=== PATIENT | female | born 1970 | race Caucasian/White ===

== ENCOUNTER 2019-03-23 18:54 | Emergency (ER) | payer OTHER ==
[2019-03-23 19:18] VITALS: TEMP 99.4
--- NOTE | 2019-03-23 20:06 | XR ---
EXAMINATION TYPE: XR humerus RT DATE OF EXAM: 03/23/2019 COMPARISON: NONE HISTORY: Pain TECHNIQUE: 2 views FINDINGS: Shoulder joint and elbow joint appear intact. I see no fracture nor dislocation. IMPRESSION: Negative right humerus exam.
--- NOTE | 2019-03-23 20:06 | XR ---
EXAMINATION TYPE: XR elbow complete RT DATE OF EXAM: 03/23/2019 COMPARISON: NONE HISTORY: Pain TECHNIQUE: 3 views FINDINGS: I see no fracture nor dislocation. Joint spaces are normal. There is no sign of elbow joint effusion. IMPRESSION: Negative right elbow exam.
--- NOTE | 2019-03-23 21:30 | ED ---
Fall HPI - General Chief Complaint: Fall Stated Complaint: Fall Time Seen by Provider: 03/23/19 20:25 Source: patient Mode of arrival: ambulatory - History of Present Illness Initial Comments: Is a pleasant 48-year-old female who presents the emergency department today for evaluation of right elbow pain. 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 She reports that she was stepping up onto a chair and then onto a table to reached up on a high shelf. She was wearing a long back C dressed wh ile doing this and at one point stepped forward caught her foot in her dress and fell backwards striking her right elbow on a box or the ground. Patient reports she immediately felt pain in her elbow which she had hit her funny bone and noticed a big bruise. Pain did not improve within 30 minutes which prompted her to come to the ER for evaluation of possible fracture. She is no history of injury or surgery to this elbow. She denies any other injury. - Related Data Home Medications Medication Instructions Recorded Confirmed Ascorbic Acid [Vitamin C] 1,000 mg PO DAILY 03/23/19 03/23/19 Cyanocobalamin (Vitamin B-12) 1,000 mcg PO DAILY 03/23/19 03/23/19 [Vitamin B-12] Multivitamins, Thera [Multivitamin 1 tab PO DAILY 03/23/19 03/23/19 (formulary)] Previous Rx's Medication Instructions Recorded Ibuprofen [Motrin] 600 mg PO Q8HR PRN #30 tab 03/23/19 Ibuprofen [Motrin] 600 mg PO Q8HR PRN #30 tab 03/23/19 tiZANidine HCL 4 mg PO TID #30 capsule 03/23/19 tiZANidine HCL 4 mg PO TID #30 capsule 03/23/19 Allergies Allergy/AdvReac Type Severity Reaction Status Date / Time Iodinated Contrast- Oral and Allergy Anaphylaxis Verified 03/23/19 21:14 IV Dye [Iodinated Contrast Media - IV Dye] latex Allergy Rash/Hives Verified 03/23/19 21:14 sulfamethoxazole Allergy Rash/Hives Verified 03/23/19 21:14 [From Bactrim] trimethoprim [From Bactrim] Allergy Rash/Hives Verified 03/23/19 21:14 meperidine HCl [From Demerol] AdvReac Anxiety Verified 03/23/19 21:14 Review of Systems ROS Statement: Those systems with pertinent positive or pertinent negative responses have been documented in the HPI. ROS Other: All systems not noted in ROS Statement are negative. Past Medical History Past Medical History: Asthma History of Any Multi-Drug Resistant Organisms: None Reported Additional Past Surgical History / Comment(s): kidney stones and obstruction Past Anesthesia/Blood Transfusion Reactions: No Reported Reaction Past Psychological History: No Psychological Hx Reported Smoking Status: Current every day smoker Past Alcohol Use History: Occasional Past Drug Use History: None Reported - Past Family History Father Family Medical History: Congestive Heart Failure (CHF), COPD, Diabetes Mellitus Mother Family Medical History: Hypertension Additional Family Medical History / Comment(s): osteoporosis Sister(s) Family Medical History: Asthma, Cancer, COPD, Diabetes Mellitus Additional Family Medical History / Comment(s): ovarian cancer Brother(s) Family Medical History: Asthma Additional Family Medical History / Comment(s): lymphoma. General Exam - General Exam Comments Initial Comments: Physical Exam GENERAL: Patient is well-developed and well-nourished. Patient is nontoxic and well- hydrated and is in no distress. HENT: Normocephalic, Atraumatic. EYES: PERRL, EOMI PULMONARY: Unlabored respirations. CARDIOVASCULAR: RRR ABDOMEN: Soft and nontender with normal bowel sounds. SKIN: Contusion to right posterior arm proximal to elbow : Deferred NEUROLOGIC: Patient is alert and oriented x3. MUSCULOSKELETAL: Right arm is held in flexed position for comofort however able to extend the elbow and pronate and supinate the arm PSYCHIATRIC: Normal psychiatric evaluation Limitations: no limitations Course Vital Signs 03/23/19 03/23/19 19:15 22:05 Temperature 99.4 F Pulse Rate 97 77 Respiratory 18 19 Rate Blood Pressure 128/73 112/56 O2 Sat by Pulse 99 97 Oximetry Medical Decision Making - Medical Decision Making Patient was seen and evaluated history is obtained from the patient, x-rays were obtained which revealed no obvious fracture. I did discuss with the patient the possibility of occult fracture, we'll place the patient in a sling for comfort, recommend Tylenol, Motrin and muscle relaxers for pain over the next 24-48 hours after the fall. Advised the patient to follow up with orthopedics for repeat evaluation next week. All questions pertaining care were answered return p arameters were discussed patient was discharged home in stable condition. Disposition Clinical Impression: Fall, Elbow pain Disposition: HOME SELF-CARE Condition: Stable Instructions (If sedation given, give patient instructions): Fall Prevention for Older Adults (ED) Prescriptions: Ibuprofen [Motrin] 600 mg PO Q8HR PRN #30 tab PRN Reason: Pain Ibuprofen [Motrin] 600 mg PO Q8HR PRN #30 tab PRN Reason: Pain tiZANidine HCL 4 mg PO TID #30 capsule tiZANidine HCL 4 mg PO TID #30 capsule Is patient prescribed a controlled substance at d/c from ED?: No Referrals: Pola Huertas DO [Primary Care Provider] - 1-2 days Lai Ulloa DO [Doctor of Osteopathic Medicine] - 1-2 days
[2019-03-23] MEDS ORDERED: KETOROLAC 30 MG/ML 1 ML VIAL IM STA (21:36)
[2019-03-23 22:06] VITALS: BP 112/56; PULSE 77; RESP 19
== END 2019-03-23 22:05 | disposition home or self-care (01) ==
LOC: EC 18:54
DX: S50.01XA Contusion of right elbow, initial encounter (principal); F17.200 Nicotine dependence, unspecified, uncomplicated; Z88.2 Allergy status to sulfonamides; Z88.5 Allergy status to narcotic agent; Z91.040 Latex allergy status; Z91.041 Radiographic dye allergy status; W07.XXXA Fall from chair, initial encounter; Y93.89 Activity, other specified; Y92.015 Private garage of single-family (private) house as the place of occurrence of the external cause
CPT/HCPCS: 73060; 73080; 99283; J1885